=== PATIENT | female | born 1985 | race Caucasian/White ===

== ENCOUNTER 2019-06-20 18:17 | Emergency (ER) | payer OTHER, SELFPAY ==
[2019-06-20 18:27] VITALS: BP 121/77; PULSE 106; RESP 16; TEMP 37; O2SAT 100
--- NOTE | 2019-06-20 18:38 | ED.ABDPAIN ---
HPI - Abdominal Pain General Chief Complaint: Abdominal Pain Stated Complaint: constipation Time Seen by Provider: 06/20/19 18:40 Source: patient Mode of arrival: ambulatory Limitations: no limitations History of Present Illness HPI narrative: 33-year-old woman who is 2 days out of rehab comes in today complaining of constipation for the last month. She states that she has had 4 bowel movements during that time, the most recent was a few days ago. She has had nausea. She denies vomiting, fever, dysuria, frequent urination. She has been taking Suboxone for the last month. MD elicited complaint: abdominal pain Pertinent past history: constipation Onset (ago): week(s) (4) Pain Consistency: constant Location: diffuse Severity: moderate Quality: cramping Radiation: none Relieving factors: nothing Associated symptoms: nausea Treatments prior to arrival: other ( various stool softener pills [id number]) Related Data Home Medications Medication Instructions Recorded Confirmed buprenorphine-naloxone [Suboxone] 1 film BUCCAL DAILY 06/20/19 06/20/19 clonazepam 1 mg PO BID PRN 06/20/19 06/20/19 quetiapine See Rx Instructions .ROUTE .COMPLEX 06/20/19 06/20/19 zolpidem 10 mg PO HS PRN 06/20/19 06/20/19 Allergies Allergy/AdvReac Type Severity Reaction Status Date / Time codeine Allergy Unknown Verified 06/20/19 18:37 Review of Systems Constitutional: Constitutional: Denies chills, Denies fever(s) and Denies weakness Eyes: Eyes: Denies change in vision and Denies photophobia ENT: Denies dysphagia, Denies nasal congestion and Denies sore throat Cardiovascular: Cardiovascular: Denies chest pain and Denies radiating jaw, neck or arm pain Respiratory: Respiratory: Denies cough, Denies dyspnea and Denies wheezing Gastrointestinal: Gastrointestinal: Reports as per HPI, Reports abdominal pain, Reports constipation, Reports nausea and Denies vomiting Comments: She occasionally has blood in her stools Genitourinary: Genitourinary: Denies nocturia and Denies dysuria Musculoskeletal: Musculoskeletal: Denies arthralgias, Denies joint swelling and Denies muscle cramps Integumentary/Breasts: Skin/Breast: Denies pruritus, Denies erythema and Denies rash Neurologic: Denies vertigo, Denies dizziness and Denies syncope Psychiatric: Psychiatric: Denies anxiety and Denies depression Endocrine: Endocrine: Denies polydipsia and Denies polyuria Hematologic/Lymphatic: Hematologic/Lymphatic: Denies easy bleeding and Denies easy bruising Allergic/Immunologic: Allergic/Immunologic: Denies lip swelling and Denies wheezing [facility] Social History Social History Smoking status: Never smoker Alcohol intake: former Substance use type: former substance user and opiates Living arrangements: with family Exam Const: General: healthy appearing and alert Orientation/consciousness: patient oriented x3 Other: [id number] acute distress HENMT: Ears: external ears normal, TM's normal bilaterally and EAC's normal Mouth: Yes Normal oral and palatal mucosa present and Yes moist mucous membranes Throat: posterior oropharynx normal Eyes: Conjunctivae: conjunctivae normal Pupils: Equal, round and reactive pupils present EOM: EOMs intact bilaterally Resp: Effort & Inspection: normal respiratory effort and not labored Auscultation: clear to auscultation bilaterally, no rales, no rhonchi and no wheezes Cardio: Rate: regular rate Rhythm: regular rhythm Heart sounds: no murmurs GI: GI Palp: Yes Soft to palpation, No Tenderness to palpation present (GI) and No Rigid due to palpation Skin: General skin exam: normal color, no jaundice and no pallor Rashes: no rashes Neuro: General: No patient oriented x3, No moves all extremities, No no meningeal signs, No no focal motor deficits and No CN's II-XI intact bilaterally Cranial nerves: No Nystagmus not present Extrem: General: ab
--- NOTE | 2019-06-20 18:50 | PC.NURSE ---
Pt asked to provide urine sample. Pt states that she is unable to go and she would like to call her mother to come pick her up so she could go. Pt states she will go home and try miralax. Pt advised if any new or worsening symptoms to please return to er. Pt walked out of out department prior to getting paper discharge papers.
== END 2019-06-20 18:57 | disposition home or self-care (01) ==
PROVIDERS: Emergency Provider Emergency Medicine; PCP Family Medicine
DX: K59.03 Drug induced constipation (principal)
CPT/HCPCS: 99282; 99283

== ENCOUNTER 2019-09-02 10:18 | Emergency (ER) | payer OTHER, SELFPAY ==
[2019-09-02 10:22] VITALS: BP 114/70; PULSE 78; RESP 18; TEMP 36.7; O2SAT 100
--- NOTE | 2019-09-02 10:50 | ED.DENTAL ---
HPI - Dental/Oral General Chief complaint: Dental/Oral Stated complaint: left lower tooth pain Time Seen by Provider: 09/02/19 10:31 Source: patient Mode of arrival: ambulatory Limitations: no limitations History of Present Illness HPI Narrative: This is a 33-year-old female that presents the emergency department for toothache x2 days. Reports she had a root canal in November of last year. Reports she did not follow-up to get the calf on the tooth. Reports that she had missed a couple of appointments she was no longer welcome to follow-up with her dentist. Reports that tooth has been bothering her for the last 2 days. Denies fever, redness or swelling. MD Complaint: tooth pain Location: Tooth # (20) Related Data Home Medications Medication Instructions Recorded Confirmed buprenorphine-naloxone [Suboxone] 1 film BUCCAL DAILY 06/20/19 06/20/19 clonazepam 1 mg PO BID PRN 06/20/19 06/20/19 quetiapine See Rx Instructions .ROUTE .COMPLEX 06/20/19 06/20/19 zolpidem 10 mg PO HS PRN 06/20/19 06/20/19 clonidine HCl 09/02/19 hydroxyzine pamoate 09/02/19 naloxone [Narcan] INTRANASAL 09/02/19 quetiapine 09/02/19 sertraline mg 09/02/19 venlafaxine mg PO 09/02/19 Allergies Allergy/AdvReac Type Severity Reaction Status Date / Time codeine AdvReac Intermediate Vomiting Verified 09/02/19 10:33 Review of Systems Review of Systems: Narrative: CONSTITUTIONAL: Denies fever ENT: Reports dentalgia All systems reviewed & are unremarkable except as noted in HPI and below PMFSH Past Medical History Medical History (Updated 09/02/19 @ 10:55 by Ana Carrasco PA-C) History of depression Surgical History Surgical History (Updated 09/02/19 @ 10:55 by Ana Carrasco PA-C) History of dilation and curettage Social History Social History Smoking status: Never smoker Alcohol intake: former Substance use type: former substance user and opiates Exam Narrative: Exam Narrative: GENERAL: Well-appearing, well-nourished, and in no acute distress. HEAD: Normocephalic, atraumatic. EYES: EOMI. ENT: Mucous membranes moist. Oropharynx without tonsillar hypertrophy exudate or other lesions. Tooth #20 tender to palpation, without surrounding erythema or edema to suggest abscess NECK: Supple. No adenopathy or masses. CHEST: Airway patent EXTREMITIES: Normal range of motion. No edema. SKIN: Warm, dry, no rash. NEURO: No focal deficits. Alert and oriented x3. PSYCH: Normal mood and affect Course Vital Signs Vital signs: Vital Signs Temperature 98.1 F 09/02/19 10:22 Pulse Rate 78 09/02/19 10:22 Respiratory Rate 18 09/02/19 10:22 Blood Pressure 114/70 09/02/19 10:22 Pulse Oximetry 100 09/02/19 10:22 Temperature 98.1 F 09/02/19 10:22 Pulse Rate 78 09/02/19 10:22 Respiratory Rate 18 09/02/19 10:22 Blood Pressure 114/70 09/02/19 10:22 Pulse Oximetry 100 09/02/19 10:22 MDM - Dental/Oral MDM Narrative Medical decision making narrative: Patient presents the emergency department for toothache x2 days. She is afebrile and nontoxic-appearing. Has a tooth that she had a root canal in the end of last year and then never got the cap put on. No surrounding erythema or edema to suggest abscess. Patient will be started on oral antibiotics and was given follow-up with a dentist. Patient is stable and felt appropriate for further outpatient evaluation. She was given warnings to return to the ER Critical Care Time Critical Care Time Critical Care Time: No Discharge Plan Discharge Clinical Impression: Toothache Patient Disposition: Home, Self-Care Condition: Stable Instructions: Antibiotic Form, Toothache (ED) Additional Instructions: Return to the Emergency Department if you experience fever >101, increasing swelling and redness of your tooth, trouble breathing, trouble swallowing, or any other symptoms that are feliberto
== END 2019-09-02 11:02 | disposition home or self-care (01) ==
PROVIDERS: Emergency Provider Emergency Medicine; PCP Family Medicine
DX: K08.89 Other specified disorders of teeth and supporting structures (principal)
CPT/HCPCS: 99283

== ENCOUNTER 2020-01-05 15:55 | Emergency (ER) | payer OTHER, SELFPAY ==
[2020-01-05 16:10] VITALS: BP 124/49; PULSE 91; RESP 18; TEMP 37; O2SAT 99
[2020-01-05] MEDS: AMOXICILLIN 500 MG CAPSULE PO (16:23)
[2020-01-05] MEDS: KETOROLAC (*BKC) 60 MG/2 ML VIAL IM (16:24)
--- NOTE | 2020-01-05 16:29 | ED.DENTAL ---
HPI - Dental/Oral General Chief complaint: Dental/Oral Stated complaint: tooth pain Source: patient Mode of arrival: ambulatory Limitations: no limitations History of Present Illness HPI Narrative: this is a 34-year-old female with history of dental caries has a cracked 2 on the left lower premolar area with surrounding gum inflammation has an appointment with her dentist, but she has pain level about a 7 of 10 with no fever chills no shortness of breath. MD Complaint: tooth pain and tooth injury Teeth map: 1. Cracked tooth with some pain and surrounding gum inflammation Onset (ago): day(s) Duration: constant Severity: moderate Severity scale (1-10): 7 Relieving factors: nothing Exacerbating factors: chewing, cold and drinking fluids Context: history of dental caries Associated symptoms: gum swelling Related Data Home Medications Medication Instructions Recorded Confirmed clonazepam 1 mg PO BID PRN 06/20/19 01/05/20 Allergies Allergy/AdvReac Type Severity Reaction Status Date / Time codeine AdvReac Intermediate Vomiting Verified 09/02/19 10:33 Review of Systems Review of Systems: All systems reviewed & are unremarkable except as noted in HPI and below PMFSH Past Medical History Medical History History of depression Surgical History Surgical History History of dilation and curettage Social History Social History Smoking status: Never smoker Alcohol intake: former Substance use type: former substance user and opiates Exam Const: General: no acute distress Orientation/consciousness: patient oriented x3 HENMT: Head: normal to inspection Other: Crack to some left lower premolar with surrounding gum inflammation and tenderness. Eyes: Conjunctivae: conjunctivae normal Pupils: Equal, round and reactive pupils present EOM: EOMs intact bilaterally Neck: Neck: normal visual inspection, no lymphadenopathy and no meningeal signs Chest: Chest palpation & inspection: normal inspection of the chest Resp: Effort & Inspection: normal respiratory effort Auscultation: clear to auscultation bilaterally Cardio: Rate: regular rate Rhythm: regular rhythm GI: Auscultation: normal bowel sounds : General: Yes no CVA tenderness Back/Spine/Pelvis: Back: no CVA tenderness Skin: General skin exam: normal color Rashes: no rashes Neuro: General: patient oriented x3, moves all extremities and no meningeal signs Extrem: General: normal to inspection Psych: Mental Status: mental status grossly normal Course Course Emergency Course: Patient received a dose of IM Toradol and a dose of p.o. amoxicillin and advised to follow-up with her dentist as scheduled. Vital Signs Vital signs: Vital Signs Temperature 37.0 C 01/05/20 16:10 Pulse Rate 91 01/05/20 16:10 Respiratory Rate 18 01/05/20 16:10 Blood Pressure 124/49 L 01/05/20 16:10 Pulse Oximetry 99 01/05/20 16:10 Temperature 37.0 C 01/05/20 16:10 Pulse Rate 91 01/05/20 16:10 Respiratory Rate 18 01/05/20 16:10 Blood Pressure 124/49 L 01/05/20 16:10 Pulse Oximetry 99 01/05/20 16:10 Critical Care Time Critical Care Time Critical Care Time: No Discharge Plan Discharge Clinical Impression: Toothache, Dental caries Fracture of tooth Qualifiers: Encounter type: initial encounter Fracture type: closed Qualified Code(s): S02.5XXA - Fracture of tooth (traumatic), initial encounter for closed fracture Patient Disposition: Home, Self-Care Condition: Stable Instructions: Antibiotic Form, Dental Abscess (ED), Acute Dental Trauma (ED), Toothache (ED) Additional Instructions: Take medicine as prescribed and follow-up with dentist as soon as possible for further evaluation treatment. Prescriptions: New naproxen 500 mg tablet
== END 2020-01-05 16:44 | disposition home or self-care (01) ==
PROVIDERS: Emergency Provider Emergency Medicine; PCP Family Medicine
DX: K02.9 Dental caries, unspecified (principal); S02.5XXA Fracture of tooth (traumatic), initial encounter for closed fracture; F32.9 Major depressive disorder, single episode, unspecified
CPT/HCPCS: 96372; 99283; A9270; J1885

== ENCOUNTER 2022-11-18 11:57 | Emergency (ER) | payer OTHER, SELFPAY ==
[2022-11-18] VITALS (20 sets, daily range): BP systolic 162–198; BP diastolic 100–117; PULSE 91–125; RESP 8–17; TEMP 36.9–37.1; O2SAT 97–100
--- NOTE | 2022-11-18 12:05 | ECG_ITS ---
Measurements Intervals [place] Rate: 111 P: 64 AR: 172 QRS: 15 QRSD: 90 T: 27 QT: 329 QTc: 448 Interpretive Statements SINUS TACHYCARDIA BASELINE ARTIFACT- I, II, III, AVR, AVL, AVF, V1-V2 ABNORMAL ECG NO PREVIOUS ECG AVAILABLE FOR COMPARISON Electronically Signed On 11-18-2022 17:06:26 CDT by Bandar Campoverde D.O.
--- NOTE | 2022-11-18 12:05 | ED.ANXIETY ---
HPI - Anxiety General Chief Complaint: Chest Pain Stated Complaint: Chest pain Time Seen by Provider: 11/18/22 12:04 Source: patient Mode of arrival: ambulatory Limitations: no limitations History of Present Illness HPI narrative: 36-year-old female with a history of anxiety, opiate use in the past and clean for the past 3 years, currently on Suboxone, positive family history of heart disease presents to the ER with -- left chest discomfort which started this morning. The discomfort radiated to her neck. -- Shortness of breath during episode of chest discomfort and subsequently resolved -- palpitation -- headache last night she drank alcohol and smoked weed. She has been taking her Suboxone on a regular basis. MD complaint: anxiety Onset (ago): minute(s) ( 30 minutes ago) Symptoms: dyspnea, chest pain, palpitations and sense of impending doom Severity: moderate Quality: constant Place: home History of similar episodes: No Provoking factors: emotional stress Relieving factors: nothing Exacerbating factors: nothing Associated symptoms: denies other symptoms, chest pain, shortness of breath, palpitations and headaches Related Data Home Medications Medication Instructions Recorded Confirmed buprenorphine 8 mg-naloxone 2 mg 1 tablet sublingual BID 11/18/22 11/18/22 sublingual tablet clonidine HCl 0.1 mg tablet 0.1 mg PO TID 11/18/22 11/18/22 lorazepam 1 mg tablet 1 mg PO BID 11/18/22 11/18/22 venlafaxine 75 mg capsule,extended 1 mg PO DAILY 11/18/22 11/18/22 release 24 hr Allergies Allergy/AdvReac Type Severity Reaction Status Date / Time codeine AdvReac Intermediate Vomiting Verified 11/18/22 12:11 Review of Systems Review of Systems: All systems reviewed & are unremarkable except as noted in HPI and below Constitutional: Constitutional: Reports as per HPI and Reports no additional constitutional complaints Eyes: Eyes: Reports as per HPI and Reports no additional eye complaints ENT: Reports system reviewed and no additional complaints, except as documented and Reports as per HPI Cardiovascular: Cardiovascular: Reports as per HPI, Reports no additional cardiovascular complaints and Reports chest pain Respiratory: Respiratory: Reports as per HPI, Reports no additional respiratory complaints and Reports dyspnea Gastrointestinal: Gastrointestinal: Reports as per HPI and Reports no additional gastrointestinal complaints Genitourinary: Genitourinary: Reports no additional female genitourinary complaints and Reports as per HPI Musculoskeletal: Musculoskeletal: Reports no additional musculoskeletal complaints and Reports as per HPI Integumentary/Breasts: Skin/Breast: Reports system reviewed and no additional complaints, except as docu Neurologic: Reports system reviewed and no additional complaints, except as documented and Reports as per HPI Psychiatric: Psychiatric: Reports no additional psychiatric complaints, Reports as per HPI and Reports anxiety Endocrine: Endocrine: Reports no additional endocrine complaints Hematologic/Lymphatic: Hematologic/Lymphatic: Reports no additional hematologic/lymphatic complaints Allergic/Immunologic: Allergic/Immunologic: Reports no additional allergic/immunologic complaints PMFSH Past Medical History Medical History History of depression Surgical History Surgical History History of dilation and curettage Social History Social History Smoking status: Never smoker Alcohol intake: former Substance use type: former substance user and opiates Living arrangements: with family Exam Const: General: no acute distress Nutritional Appearance: well nourished Orientation/consciousness: patient oriented x3 Limitations: no limitations HENMT: Head: normal to inspection Ears: external ears stacy
--- NOTE | 2022-11-18 12:20 | PC.NURSE ---
erp is aware of patient's elevated blood pressure.
[2022-11-18] MEDS: ALPRAZolam (*CRX) 0.5 MG TABLET PO (12:29)
[2022-11-18 12:43] LABS: Basophils Absolute Auto 0.03 K/mm3 (0.00-0.10); Basophils Percent Auto 0.3 % (0.0-1.0); Hematocrit 37.4 % (35.0-49.0); Hemoglobin 12.9 g/dL (12.0-15.0); Immature Granulocyte Absolute 0.03 K/mm3 (0.00-0.00); Immature Granulocyte Percent A 0.3 % (0.0-0.0); Lymphocytes Absolute Auto 1.81 K/mm3 (1.10-4.50); Lymphocytes Percent Auto 19.3 % (18.0-42.0); Mean Corpuscular HGB Conc 34.5 g/dL (32.0-36.0); Mean Corpuscular Volume 89.9 fL (78.0-102.0); Mean Platelet Volume 9.5 fl (9.2-11.8); Monocytes Absolute Auto 0.48 K/mm3 (0.10-0.90); Monocytes Percent Auto 5.1 % (2.0-11.0); Platelet Count Result 278 K/mm3 (150-420); Red Blood Count 4.16 M/mm3 (4.20-5.40); Red Cell Distribution Width 13.6 % (11.6-14.4); White Blood Count 9.4 K/mm3 (4.8-10.8)
[2022-11-18 12:50] LABS: Partial Thromboplastin Time 25.9 SEC (23.90-30.70)
[2022-11-18 12:58] LABS: Lactic Acid Reflex 2.7 mmol/L (0.4-2.0)
[2022-11-18 13:02] LABS: Influenza A QL RT-PCR Negative (Negative); Influenza B QL RT-PCR Negative (Negative); RSV RNA, RT-PCR Negative (Negative); SARS-CoV-2 RNA PCR Negative (Negative)
[2022-11-18 13:06] LABS: Alanine Aminotransferase 25 U/L (14-59); Albumin Level 4.3 g/dL (3.4-5.0); Alkaline Phosphatase 118 U/L (46-116); Anion Gap 11 mmol/L (8-16); Aspartate Amino Transferase 24 U/L (15-37); Bilirubin,Total 1.3 mg/dL (0.00-1.00); Blood Urea Nitrogen 5 mg/dL (7-18); Calcium 8.8 mg/dL (8.5-10.1); Carbon Dioxide 26 mmol/L (21-32); Chloride 101 mmol/L (98-108); Estimated Glomerular Filt Rate > 60; Glucose 94 mg/dL (70-99); Osmolality Calculated 283 mOsm/kg (285-295); Potassium 3.2 mmol/L (3.5-5.1); Sodium 138 mmol/L (136-145); Total Protein 8.1 g/dL (6.4-8.2)
[2022-11-18 13:08] LABS: Thyroid Stimulating Hormone 1.17 uIU/mL (0.36-3.74); Troponin I 7.7 ng/L (0.00-60.4)
--- NOTE | 2022-11-18 13:30 | PC.NURSE ---
erp made aware patient's blood pressure is still elevated.
[2022-11-18] MEDS: LABETALOL HCL INJ 100 MG/20 ML VIAL 10 MG IV PUSH (13:41)
== END 2022-11-18 14:07 | disposition home or self-care (01) ==
PROVIDERS: Emergency Provider Internal Medicine Critical Care Medicine; PCP Family Medicine
DX: F41.9 Anxiety disorder, unspecified (principal); R07.9 Chest pain, unspecified; Z79.899 Other long term (current) drug therapy; Z20.822 Contact with and (suspected) exposure to COVID-19
CPT/HCPCS: 36415; 80053; 83605; 84443; 84484; 85025; 85730; 87637; 93005; 96374; 99284; A9270

== ENCOUNTER 2024-03-27 18:07 | Emergency (ER) | payer OTHER, SELFPAY ==
--- NOTE | ~2024-03-27 | XR_ITS ---
CHEST RADIOGRAPH CLINICAL HISTORY: SOB/CONGESTION . COMPARISON: None available TECHNIQUE: Single portable view of the chest. FINDINGS The cardiomediastinal silhouette is unremarkable. The lungs are clear. Visualized osseous structures and soft tissues are unremarkable. IMPRESSION: No focal infiltrate or effusion. Reviewed, dictated and finalized at location A. [employer]
[2024-03-27 18:07] VITALS: BP 128/86; PULSE 97; RESP 16; TEMP 36.8; O2SAT 98
--- NOTE | 2024-03-27 18:13 | ECG_ITS ---
Test Date: 2024-03-27 18:22:06 Measurements Intervals [place] Rate: 88 P: 66 CA: 148 QRS: 23 QRSD: 92 T: 27 QT: 368 QTc: 446 Interpretive Statements SINUS RHYTHM POSSIBLE LEFT ATRIAL ENLARGEMENT [-0.1mV P-WAVE IN V1/V2] POSSIBLE RIGHT VENTRICULAR CONDUCTION DELAY [RSR (QR) IN V1/V2] No previous ECG available for comparison Electronically Signed On 03-28-2024 23:57:16 [employer] by Svetlana Parra M.D.
--- NOTE | 2024-03-27 18:38 | ED.ANXIETY ---
HPI - Anxiety General Chief Complaint: Anxiety Stated Complaint: anxiety Time Seen by Provider: 03/27/24 18:13 Source: patient and family Mode of arrival: ambulatory Limitations: no limitations History of Present Illness HPI narrative: This is a 38-year-old female with history of anxiety / panic attacks presents with some chest discomfort with some numbness and tingling in her fingertips and no fever chills no shortness of breath no nausea vomiting or abdominal pain. complaint: anxiety and shortness of breath Onset (ago): hour(s) Symptoms: dyspnea and chest pain Severity: moderate Quality: improving Related Data Home Medications ?Medication ?Instructions ?Recorded ?Confirmed ?Last Taken ?Type buprenorphine 8 mg-naloxone 2 mg 1 tablet sublingual BID 11/18/22 11/18/22 Unknown History sublingual tablet clonidine HCl 0.1 mg tablet 0.1 mg PO TID 11/18/22 11/18/22 Unknown History lorazepam 1 mg tablet 1 mg PO BID 11/18/22 11/18/22 Unknown History venlafaxine 75 mg capsule,extended 1 mg PO DAILY 11/18/22 11/18/22 Unknown History release 24 hr Allergies Allergy/AdvReac Type Severity Reaction Status Date / Time codeine AdvReac Intermediate Vomiting Verified 03/27/24 18:11 Review of Systems Review of Systems: All systems reviewed & are unremarkable except as noted in HPI and below PMFSH Past Medical History Medical History History of depression Surgical History Surgical History History of dilation and curettage Social History Social History Smoking status: Never smoker Alcohol intake: former Substance use type: marijuana and methamphetamine Living arrangements: with family Exam Const: General: healthy appearing and no acute distress Nutritional Appearance: well nourished Orientation/consciousness: patient oriented x3 Limitations: no limitations Neck: Neck: normal visual inspection Chest: Chest palpation & inspection: normal inspection of the chest Resp: Effort & Inspection: normal respiratory effort Auscultation: clear to auscultation bilaterally GI: GI Palp: Yes Soft to palpation Auscultation: normal bowel sounds Skin: General skin exam: normal color Rashes: no rashes Neuro: General: patient oriented x3, moves all extremities, no meningeal signs and no focal motor deficits Extrem: Other: Red warm Hands that alfredo with palpation with some radial pulses intact bilaterally. Psych: Affect: Anxious affect present Course Course Emergency Course: Patient had EKG which showed normal sinus rhythm chest x-ray with no acute abnormalities, patient received 0.5mg PO Xanax. and follow-up with primary. Vital Signs Vital signs: Vital Signs Temperature 36.8 C 03/27/24 18:07 Pulse Rate 97 03/27/24 18:07 Respiratory Rate 16 03/27/24 18:07 Blood Pressure 128/86 03/27/24 18:07 Pulse Oximetry 98 03/27/24 18:07 Oxygen Delivery Room Air 03/27/24 18:07 Temperature 36.8 C 03/27/24 18:07 Pulse Rate 97 03/27/24 18:07 Respiratory Rate 16 03/27/24 18:07 Blood Pressure 128/86 03/27/24 18:07 Pulse Oximetry 98 03/27/24 18:07 Oxygen Delivery Room Air 03/27/24 18:07 Critical Care Time Critical Care Time Critical Care Time: No Discharge Plan Discharge Clinical Impression: Acute anxiety Patient Disposition: Home, Self-Care Condition: Stable Instructions: Antibiotic Form, Panic Disorder (ED) Additional Instructions: Take medicine as prescribed and follow-up with primary within a week for further evaluation treatment. Patient Language: [place] Prescriptions: New lorazepam [Ativan] 0.5 mg tablet 0.5 mg PO BID PRN (Reason: anxiety) Qty: 20 0RF No Action clonidine HCl 0.1 mg tablet 0.1 mg PO TID venlafaxine 75 mg capsule,extended release 24hr 1 mg PO DAILY lorazepam 1 mg tablet 1 mg PO BID buprenorphine-naloxone 8-2 mg tablet, sublingual 1 tablet SUBLINGUAL BID losartan-hydrochlorothiazide [Hyzaar] 100-25 mg tablet 1 tablet PO DAILY Qty: 30 0RF Follow-up/Referrals: Austyn Macias M.D. [Primary Care Provider] - Time of Disposition: 18:44
[2024-03-27] MEDS: ALPRAZolam (*CRX) 0.5 MG TABLET PO (18:53)
[2024-03-27 19:25] VITALS: BP 122/84; PULSE 88; RESP 14; O2SAT 99
== END 2024-03-27 19:25 | disposition home or self-care (01) ==
PROVIDERS: Emergency Provider Emergency Medicine; PCP Family Medicine
DX: F41.9 Anxiety disorder, unspecified (principal)
CPT/HCPCS: 71045; 93005; 99283; A9270

== ENCOUNTER 2024-05-05 09:18 | Emergency (ER) | payer OTHER, SELFPAY ==
[2024-05-05 09:18] VITALS: BP 133/71; PULSE 82; RESP 16; TEMP 36.3; O2SAT 98
--- NOTE | 2024-05-05 09:22 | ED.URI ---
HPI - URI/Sore Throat General Chief Complaint: Upper Respiratory Infection Stated Complaint: URI Time Seen by Provider: 05/05/24 09:20 Source: patient Mode of arrival: ambulatory Limitations: no limitations History of Present Illness HPI Narrative: Patient is a 38-year-old female with cough and congestion and head pressure and sinus pressure for the past 3 days. She has exposure to strep. She is concerned about viral illness or bacterial illness. MD elicited complaint: cough, sore throat, rhinorrhea and nasal congestion Pertinent past history: other ( None) Onset (ago): day(s) ( 3) Consistency: constant Severity: moderate Pain scale (0-10): 5 Description of mucous: clear Able to tolerate fluids by mouth: Yes Exacerbating factors: nothing Relieving factors: nothing Context: sick contacts and other(s) with similar symptoms Associated symptoms: headache, rhinorrhea, nasal congestion, sore throat, cough and ear pain Treatments prior to arrival: none Related Data Home Medications ?Medication ?Instructions ?Recorded ?Confirmed ?Last Taken ?Type buprenorphine 8 mg-naloxone 2 mg 1 tablet sublingual BID 11/18/22 11/18/22 Unknown History sublingual tablet clonidine HCl 0.1 mg tablet 0.1 mg PO TID 11/18/22 11/18/22 Unknown History lorazepam 1 mg tablet 1 mg PO BID 11/18/22 11/18/22 Unknown History venlafaxine 75 mg capsule,extended 1 mg PO DAILY 11/18/22 11/18/22 Unknown History release 24 hr Allergies Allergy/AdvReac Type Severity Reaction Status Date / Time topiramate (From Topamax) Allergy Unknown Unknown Verified 05/05/24 09:53 codeine AdvReac Intermediate Vomiting Verified 05/05/24 09:45 Review of Systems Review of Systems: All systems reviewed & are unremarkable except as noted in HPI and below Constitutional: Constitutional: Reports no additional constitutional complaints Eyes: Eyes: Reports no additional eye complaints ENT: Reports system reviewed and no additional complaints, except as documented Cardiovascular: Cardiovascular: Reports no additional cardiovascular complaints Respiratory: Respiratory: Reports no additional respiratory complaints Gastrointestinal: Gastrointestinal: Reports no additional gastrointestinal complaints Genitourinary: Genitourinary: Reports no additional female genitourinary complaints Musculoskeletal: Musculoskeletal: Reports no additional musculoskeletal complaints Integumentary/Breasts: Skin/Breast: Reports system reviewed and no additional complaints, except as docu Neurologic: Reports system reviewed and no additional complaints, except as documented Psychiatric: Psychiatric: Reports no additional psychiatric complaints Endocrine: Endocrine: Reports no additional endocrine complaints Hematologic/Lymphatic: Hematologic/Lymphatic: Reports no additional hematologic/lymphatic complaints Allergic/Immunologic: Allergic/Immunologic: Reports no additional allergic/immunologic complaints [facility] Past Medical History Medical History History of depression Surgical History Surgical History History of dilation and curettage Social History Social History Smoking status: Never smoker Alcohol intake: former Substance use type: marijuana and methamphetamine Living arrangements: with family Exam Const: General: ill appearing Nutritional Appearance: well nourished Orientation/consciousness: patient oriented x3 Limitations: no limitations HENMT: Head: normal to inspection Ears: external ears normal Face/Nose/Sinus: Normal external nose present Eyes: Conjunctivae: conjunctivae normal Pupils: Equal, round and reactive pupils present EOM: EOMs intact bilaterally Neck: Neck: normal visual inspection Chest: Chest palpation & inspection: normal inspection of the chest Resp: Effort & Inspection: normal respiratory effort and not labored Auscultation: clear to auscultation bilaterally and no crackles Cardio: Rate: regular rate Rhythm: regular rhythm Heart sounds: no murmurs GI: Inspection: non-distended GI Palp: Yes Soft to palpation and No Tenderness to palpation present (GI) Auscultation: normal bowel sounds : General: Yes bladder normal to palpation Back/Spine/Pelvis: Back: no CVA tenderness Skin: General skin exam: normal color Rashes: no rashes Wounds: no wounds Neuro: General: patient oriented x3 Cranial nerves: Yes Nystagmus not present Speech: normal speech Extrem: General: normal to inspection Psych: Mental Status: mental status grossly normal Affect: normal affect Attitude: cooperative Course Vital Signs Vital signs: Vital Signs Temperature 36.3 C L 05/05/24 09:18 Pulse Rate 82 05/05/24 09:18 Respiratory Rate 16 05/05/24 09:18 Blood Pressure 133/71 05/05/24 09:18 Pulse Oximetry 98 05/05/24 09:18 Oxygen Delivery Room Air 05/05/24 09:18 Temperature 36.3 C L 05/05/24 09:18 Pulse Rate 82 05/05/24 09:18 Respiratory Rate 16 05/05/24 09:18 Blood Pressure 133/71 05/05/24 09:18 Pulse Oximetry 98 05/05/24 09:18 Oxygen Delivery Room Air 05/05/24 09:18 MDM - URI/Sore Throat MDM Narrative Medical decision making narrative: patient is a 38-year-old female with multiple upper respiratory complaints here for evaluation. We will do a COVID nasal swab and strep. Lab Data Attestation: I reviewed the patient's lab results. Labs: Lab Results 05/05/24 Range/Units 09:22 Influenza A (RT-PCR) Negative (Negative) Influenza B (RT-PCR) Negative (Negative) RSV (RT-PCR) Negative (Negative) SARS-CoV-2 RNA (RT-PCR) Negative (Negative) Group A Strep (PCR) Not detected (Negative) Discharge Plan Discharge Clinical Impression: Upper respiratory infection Qualifiers: URI type: unspecified URI Qualified Code(s): J06.9 - Acute upper respiratory infection, unspecified Sinusitis Qualifiers: Sinusitis location: unspecified location Chronicity: acute Recurrence: non-recurrent Qualified Code(s): J01.90 - Acute sinusitis, unspecified Patient Disposition: Home, Self-Care Condition: Stable Instructions: Antibiotic Form, Sinusitis (ED) Patient Language: Indonesian Prescriptions: New azithromycin 250 mg tablet See Rx Instructions .ROUTE .COMPLEX Qty: 6 0RF Rx Instructions: For 250 mg dose pack: take 500 mg today (day 1), then 250 mg for 4 days (days 2-5) prednisone 20 mg tablet 40 mg PO DAILY 3 Days Qty: 6 0RF No Action clonidine HCl 0.1 mg tablet 0.1 mg PO TID venlafaxine 75 mg capsule,extended release 24hr 1 mg PO DAILY lorazepam 1 mg tablet 1 mg PO BID buprenorphine-naloxone 8-2 mg tablet, sublingual 1 tablet SUBLINGUAL BID losartan-hydrochlorothiazide [Hyzaar] 100-25 mg tablet 1 tablet PO DAILY Qty: 30 0RF lorazepam [Ativan] 0.5 mg tablet 0.5 mg PO BID PRN (Reason: anxiety) Qty: 20 0RF Follow-up/Referrals: Austyn Macias M.D. [Primary Care Provider] - Stand Alone Forms: Work/School Release IP Time of Disposition: 10:15
[2024-05-05 10:05] LABS: Strep Group A RT-PCR NOT DETECTED (Negative)
[2024-05-05 10:07] LABS: Influenza A QL RT-PCR Negative (Negative); Influenza B QL RT-PCR Negative (Negative); RSV RNA, RT-PCR Negative (Negative); SARS-CoV-2 RNA PCR Negative (Negative)
[2024-05-05 10:30] VITALS: BP 126/78; PULSE 80; RESP 18; TEMP 36.7; O2SAT 100
== END 2024-05-05 10:30 | disposition home or self-care (01) ==
PROVIDERS: Emergency Provider Emergency Medicine; PCP Family Medicine
DX: J06.9 Acute upper respiratory infection, unspecified (principal); J01.90 Acute sinusitis, unspecified; Z20.822 Contact with and (suspected) exposure to COVID-19
CPT/HCPCS: 87637; 87651; 99283

== ENCOUNTER 2024-08-06 10:32 | Emergency (ER) | payer OTHER, SELFPAY ==
[2024-08-06 10:32] VITALS: BP 130/91; PULSE 100; RESP 14; TEMP 36.6; O2SAT 98
--- NOTE | 2024-08-06 10:40 | ED.HA ---
HPI - Headache General Chief Complaint: Headache Stated Complaint: headache Time Seen by Provider: 08/06/24 10:40 Source: patient Mode of arrival: ambulatory Limitations: no limitations History of Present Illness HPI Narrative: 38-year-old female with a history of anxiety / depression, Hypertension, migraine presents to the ED -- migraine headache since yesterday. Pain is located in the forehead/bitemporal region and behind the left ear. The pain started gradually. -- Nausea with multiple episodes of vomiting -- photophobia and phonophobia she has not had a migraine headache for the past 2 years. MD elicited complaint: headache Pertinent past history: migraines Onset (ago): day(s) ( 1 day) Onset description: gradually Location: left, frontal and occipital Severity: mild Quality & Timing: aching Exacerbating factors: none Relieving factors: nothing Context: occurred at rest Associated symptoms: nausea, vomiting, photophobia and sensitivity to sound Treatments prior to arrival: ibuprofen Related Data Home Medications ?Medication ?Instructions ?Recorded ?Confirmed ?Last Taken ?Type buprenorphine 8 mg-naloxone 2 mg 1 tablet sublingual BID 11/18/22 11/18/22 Unknown History sublingual tablet clonidine HCl 0.1 mg tablet 0.1 mg PO TID 11/18/22 11/18/22 Unknown History lorazepam 1 mg tablet 1 mg PO BID 11/18/22 11/18/22 Unknown History venlafaxine 75 mg capsule,extended 1 mg PO DAILY 11/18/22 11/18/22 Unknown History release 24 hr Allergies Allergy/AdvReac Type Severity Reaction Status Date / Time topiramate (From Topamax) Allergy Unknown Unknown Verified 05/05/24 09:53 codeine AdvReac Intermediate Vomiting Verified 05/05/24 09:45 Review of Systems Review of Systems: All systems reviewed & are unremarkable except as noted in HPI and below PMFSH Past Medical History Medical History History of depression Surgical History Surgical History History of dilation and curettage Social History Social History Smoking status: Never smoker Alcohol intake: former Substance use type: marijuana and methamphetamine Living arrangements: with family Exam Narrative: 155/91 Const: General: healthy appearing and no acute distress Nutritional Appearance: well nourished Orientation/consciousness: patient oriented x3 Limitations: no limitations HENMT: Head: normal to inspection Ears: external ears normal Face/Nose/Sinus: Normal external nose present Face and sinus: normal facial exam Mouth: Yes Normal oral and palatal mucosa present Throat: posterior oropharynx normal Eyes: Conjunctivae: conjunctivae normal EOM: EOMs intact bilaterally Direct Ophthalmoscopy: photophobia Neck: Neck: normal visual inspection, no lymphadenopathy and no meningeal signs Chest: Chest palpation & inspection: normal inspection of the chest Resp: Effort & Inspection: normal respiratory effort Auscultation: clear to auscultation bilaterally Cardio: Rate: regular rate Rhythm: regular rhythm GI: GI Palp: Yes Soft to palpation Auscultation: normal bowel sounds Other: no tenderness/rigidity / rebound. : General: Yes no CVA tenderness Urinary Catheter: Urinary Catheter: patent and draining Back/Spine/Pelvis: Back: no CVA tenderness Cervical Spine: collar present Skin: General skin exam: normal color Rashes: no rashes Wounds: no wounds Neuro: General: patient oriented x3, moves all extremities, no meningeal signs, no focal motor deficits and CN's II-XI intact bilaterally Cranial nerves: Yes Nystagmus not present Speech: normal speech Gait exam (Neuro): Normal gait present Extrem: General: normal to inspection and no clubbing, cyanosis or edema Psych: Mental Status: mental status grossly normal Affect: normal affect Attitude: cooperative Course Course Emergency Course: Headache-- common migraine-- will try Toradol and Zofran. No relief of pain. Gave the patient sumatriptan and Compazine. Headache resolved. Vital Signs Vital signs: Vital Signs Temperature 36.6 C 08/06/24 10:32 Pulse Rate 100 08/06/24 10:32 Respiratory Rate 14 08/06/24 10:32 Blood Pressure 130/91 H 08/06/24 10:32 Pulse Oximetry 98 08/06/24 10:32 Oxygen Delivery Room Air 08/06/24 10:32 Temperature 36.6 C 08/06/24 10:32 Pulse Rate 100 08/06/24 10:32 Respiratory Rate 14 08/06/24 10:32 Blood Pressure 130/91 H 08/06/24 10:32 Pulse Oximetry 98 08/06/24 10:32 Oxygen Delivery Room Air 08/06/24 10:32 MDM - Headache MDM Narrative Medical decision making narrative: Migraine headache Differential Diagnosis Differential diagnosis: Likely tension headache Medical Records Attestation: I reviewed the patient's medical records. Lab Data Attestation: I reviewed the patient's lab results. Discharge Plan Discharge Clinical Impression: Migraine Patient Disposition: Home Condition: Stable Instructions: Antibiotic Form, Migraine Headache (ED) Patient Language: Amharic Prescriptions: New sumatriptan succinate 50 mg tablet 50 mg PO Q2H PRN (Reason: migraine headache) Qty: 4 0RF Rx Instructions: do not exceed 4 doses per 24 hrs prochlorperazine maleate [Compazine] 10 mg tablet 10 mg PO Q8H PRN (Reason: vomiting) Qty: 7 0RF No Action clonidine HCl 0.1 mg tablet 0.1 mg PO TID venlafaxine 75 mg capsule,extended release 24hr 1 mg PO DAILY lorazepam 1 mg tablet 1 mg PO BID buprenorphine-naloxone 8-2 mg tablet, sublingual 1 tablet SUBLINGUAL BID losartan-hydrochlorothiazide [Hyzaar] 100-25 mg tablet 1 tablet PO DAILY Qty: 30 0RF azithromycin 250 mg tablet See Rx Instructions .ROUTE .COMPLEX Qty: 6 0RF Rx Instructions: For 250 mg dose pack: take 500 mg today (day 1), then 250 mg for 4 days (days 2-5) prednisone 20 mg tablet 40 mg PO DAILY 3 Days Qty: 6 0RF lorazepam [Ativan] 0.5 mg tablet 0.5 mg PO BID PRN (Reason: anxiety) Qty: 20 0RF Follow-up/Referrals: Austyn Macias M.D. [Primary Care Provider] - Time of Disposition: 12:23
[2024-08-06] MEDS: ONDANSETRON HCL ODT 4 MG TABLET PO (10:53)
[2024-08-06] MEDS: KETOROLAC 30 MG/ML VIAL (*BKC) IM (10:56)
[2024-08-06] MEDS: PROCHLORPERAZINE EDISYLATE 10 MG/2 ML VIAL IM (11:34)
[2024-08-06] MEDS: SUMAtriptan SUCCINATE 6 MG/0.5 ML VIAL SUB-Q (11:35)
[2024-08-06 12:27] VITALS: BP 133/86; PULSE 85; RESP 18; TEMP 36.7; O2SAT 99
== END 2024-08-06 12:27 | disposition home or self-care (01) ==
PROVIDERS: Emergency Provider Internal Medicine Critical Care Medicine; PCP Family Medicine
DX: G43.909 Migraine, unspecified, not intractable, without status migrainosus (principal); I10 Essential (primary) hypertension
CPT/HCPCS: 96372; 99284; A9270; J0780; J1885; J3030